=== PATIENT | male | born 2000 | race Caucasian/White ===

== ENCOUNTER 2024-10-23 13:12 | Outpatient (AMB) | payer BC, SELFPAY ==
--- NOTE | 2024-10-23 13:59 | A.OFFVISCC_ITS ---
Intake Visit Reasons: Intake Allergies No Known Allergies Allergy (Verified 10/23/24 13:59) HPI HPI Intake: Details: Patient presents for evaluation and treatment of OUD Reports he has been using fentanyl bundle-2 bundles daily Started using opiates (pills) at age 15 and transitioned to heroin at age 17. Reports at least 2 admissions to ATS facility with his father and left both times within the first day Reports MOUD for about a year ---methadone 70mg states he began to skip days and not take it seriously Denies any history of overdose Patient also reporting daily drinking Drinks approx 1/2 pint daily started drinking at 15 years old denies withdrawal sx Strong family history of addiciton Denies any history of HIV or hepatitis--can not recall when last screen occurred He is open to discussing strategies for initiating buprenorphine Unsure of what he wants to do at this time Considering admission to ATS as he does not think he can deal with being sick Not interested in methadone Review of Systems Const Reports as per HPI, Reports chills, Reports difficulty sleeping, Reports lethargy and Reports malaise Psych Reports anxiety, Reports irritability and Reports anhedonia Physical Exam Const General: cooperative and comfortable Nutritional Appearance: average body habitus Orientation/consciousness: patient oriented x3 Limitations: no limitations Neuro General: patient oriented x3 Psych Appearance: disheveled Speech and movement: Normal speech and movement present Affect: normal affect Attitude: cooperative Thought process: Normal thought process present Thought content: Compulsions present (thought content) Insight: Fair insight present (Psych) Judgement: Fair judgement present (Psych) Results AMB 14 Panel Urine Drug Screen Urine Marijuana (THC) Positive Last Edit by Nancy Mcknight RN on 10/23/24 17: 01 Urine Cocaine Positive Last Edit by Nancy Mcknight RN on 10/23/24 17:01 Urine Morphine Negative Last Edit by Nancy Mcknight RN on 10/23/24 17:01 Urine Methamphetamine Negative Last Edit by Nancy Mcknight RN on 10/23/24 17: 01 Urine Amphetamine Negative Last Edit by Nancy Mcknight RN on 10/23/24 17:01 Urine Benzodiazepine Positive Last Edit by Nancy Mcknight RN on 10/23/24 17:0 1 Urine Barbiturates Negative Last Edit by Nancy Mcknight RN on 10/23/24 17:01 Urine Methadone Negative Last Edit by Nancy Mcknight RN on 10/23/24 17:01 Urine Buprenorphine Negative Last Edit by Nancy Mcknight RN on 10/23/24 17:01 Urine Tricyclic Antidepressant Negative Last Edit by Nancy Mcknight RN on 10/23/24 17:01 Urine MDMA Negative Last Edit by Nancy Mcknight RN on 10/23/24 17:01 Urine Oxycodone Negative Last Edit by Nancy Mcknight RN on 10/23/24 17:01 Urine Phencyclidine Negative Last Edit by Nancy Mcknight RN on 10/23/24 17:01 Urine Propoxyphene Negative Last Edit by Nancy Mcknight RN on 10/23/24 17:01 Results Reviewed Results Reviewed: Laboratory Last Values POC Urine Buprenorphine Negative 10/23/24 13:40 POC Urine Morphine Negative 10/23/24 13:40 POC Urine Oxycodone Negative 10/23/24 13:40 POC Urine Methadone Negative 10/23/24 13:40 POC Urine Propoxyphene Negative 10/23/24 13:40 POC Urine Barbiturates Negative 10/23/24 13:40 POC U Tricyclic Antidpr Negative 10/23/24 13:40 POC Urine PCP Negative 10/23/24 13:40 POC Ur Amphetamines Negative 10/23/24 13:40 POC Ur Methamphetamine Negative 10/23/24 13:40 POC Urine MDMA Negative 10/23/24 13:40 POC Ur Benzodiazepine Positive 10/23/24 13:40 POC Urine Cocaine Positive 10/23/24 13:40 POC Ur Marijuana (THC) Positive 10/23/24 13:40 Assessment & Plan Assessment & Plan (1) Opioid use disorder, severe, dependence: Code(s): F11.20 - Opioid dependence, uncomplicated Category: Medical Plan: * patient to consider what he wants to do. considering admission to ATS * risk reduction and overdose prevention discussion * patient to follow up with [facility] when ready MAT Intake Nursing Intake Reason for visit: MAT intake Are you currently using?: Yes What are you taking?: Heroin, Fentanyl, Cocaine, Marijuana (denied Benzodiazepines however UDS positive), Alcohol When was your last use?: Today How much?: 2 bags heroin, few sips alcohol What is your source of income?: unemployment What is your current relationship status?: single Current PCP: none Referral Source: walk-in Details: Arrived with his father who was a walk in from the ED last week. Substance Abuse History Substance Abuse History (includes route, frequency and quantity): Heroin (daily, 2 bags), Cocaine (Occasionally-last use October 18.), Alcohol (reports a few sips today), Marijuana (reports use today) and Tobacco (daily) Social History Domestic Violence concerns: none Children: none Do you have a support system?: yes Current mode of transportation?: Bus Where are you currently residing?: [place] [facility] Use Have you ever shared needles?: No Have you ever belonged to a needle exchange program?: No Do you buy needles at a pharmacy?: Yes Have you ever overdosed?: No Have you ever been hospitalized for an overdose?: No Was Naloxone administered?: Not applicable Recovery History Have you had any periods of recovery?: Yes What is your longest time in recovery?: 14 hours Have you ever had inpatient treatment for your substance abuse disorder?: Yes ([facility] or [facility]- 14 hour stay) Have you been in an inpatient detoxification program?: Yes Have you been in an inpatient Rehab/[place] house?: No Have you been in an outpatient Methadone Maintenance program?: No Have you been in an outpatient Suboxone Maintenance program?: No Have you been in an AA/NA support program?: No Have you had a Recovery Support Traffic Control Operator?: No Have you had Peer Support?: No Behavioral Health History Do you have a current provider? If so, who?: no diagnosis: none History of other addictive behavior: none History of inpatient psychiatric hospitalization? If so, how many? Most Recent? Where?: none History of self harming thoughts?: No History of homicidal or suicidal intentions?: No Medical Conditions Endocarditis?: No Skin Infection: No Seizure related to withdrawal or overdose: No Head or brain injury: No Hepatitis A (if yes, have you been treated?): No Hepatitis B (if yes, have you been treated?): No Hepatitis C (if yes, have you been treated?): No HIV (if yes, have you been treated?): No TB (if yes, have you been treated?): No Other: No Do you have any chronic pain conditions?: no Legal History History of incarceration: No Currently on parole or probation: No Court mandated programs: No Pending court cases: No DCF involvement: No
--- NOTE | 2024-10-23 16:56 | AM.OFFVISNUR ---
Intake Visit Reasons: Intake Allergies No Known Allergies Allergy (Verified 10/23/24 13:59) Results AMB 14 Panel Urine Drug Screen Urine Marijuana (THC) Positive Last Edit by Nancy Mcknight RN on 10/23/24 17:01 Urine Cocaine Positive Last Edit by Nancy Mcknight RN on 10/23/24 17:01 Urine Morphine Negative Last Edit by Nancy Mcknight RN on 10/23/24 17:01 Urine Methamphetamine Negative Last Edit by Nancy Mcknight RN on 10/23/24 17:01 Urine Amphetamine Negative Last Edit by Nancy Mcknight RN on 10/23/24 17:01 Urine Benzodiazepine Positive Last Edit by Nancy Mcknight RN on 10/23/24 17:01 Urine Barbiturates Negative Last Edit by Nancy Mcknight RN on 10/23/24 17:01 Urine Methadone Negative Last Edit by Nancy Mcknight RN on 10/23/24 17:01 Urine Buprenorphine Negative Last Edit by Nancy Mcknight RN on 10/23/24 17:01 Urine Tricyclic Antidepressant Negative Last Edit by Nancy Mcknight RN on 10/23/24 17:01 Urine MDMA Negative Last Edit by Nancy Mcknight RN on 10/23/24 17:01 Urine Oxycodone Negative Last Edit by Nancy Mcknight RN on 10/23/24 17:01 Urine Phencyclidine Negative Last Edit by Nancy Mcknight RN on 10/23/24 17:01 Urine Propoxyphene Negative Last Edit by Nancy Mcknight RN on 10/23/24 17:01
== END 2024-10-23 14:12 | disposition home or self-care (01) ==
PROVIDERS: PCP Family Medicine; Visit Provider Nurse Practitioner Psychiatric/Mental Health
DX: F11.20 Opioid dependence, uncomplicated (principal)
CPT/HCPCS: 99204

== ENCOUNTER → 2024-10-23 13:12 | Outpatient (BNVA) | payer BC, SELFPAY | PROVIDERS: PCP Family Medicine; Visit Provider Nurse Practitioner Psychiatric/Mental Health ==